=== PATIENT | male | born 1960 | race Two or more races ===

== ENCOUNTER 2019-05-19 11:45 | Emergency (ER) | payer OTHER ==
[~2019-05-19 11:45] MED LIST: ATROPINE SULFATE 0.1 MG/ML 10ML SYRINGE ONE; CALCIUM CHLORIDE 100 MG/ML 10 ML SYRINGE ONE; EPINEPHrine 10 ML SYRINGE (0.1 MG/ML) ONE; SODIUM BICARB 8.4% 50 ML SYR (1 MEQ/ML) ONE
[2019-05-19 12:49] VITALS: BP 0/0; PULSE 0; RESP 0; TEMP 96
--- NOTE | 2019-05-19 12:49 | ED ---
CPR HPI - General Stated Complaint: Cardiac arrest Time Seen by Provider: 05/19/19 11:56 Source: RN notes reviewed, old records reviewed - History of Present Illness Initial Comments: This is a 58-year-old male the ER for evaluation. Patient is unable to give history secondary to current cardiac arrest is brought in by EMS, history obtained by EMS and then further from family upon interview. Patient was playing with grandkids became nauseous fell backwards passed out became unresponsive. At that time patient family called EMS EMS showed at house and found patient to be without pulse. CPR was started, patient was elevated. Patient was given epi is the field 25 minute cardiac arrest. Return of pulse. They did continue CPR and will bring patient into the emergency room patient currently on arrival in emergency room is getting CPR but does not have pulse MD Complaint: found unresponsive, stopped breathing -: minute(s) (45) Place: home Bystander CPR Performed: No AED Applied by Bystander/Cell Room Operator: Yes Shock Advised: No Initial Findings in the Field: unresponsive, no respirations, no pulse ROSC in the Field: Yes Associated Injuries: No Associated Symptoms: dizziness/weakness, sweating Treatments Prior to Arrival: intubation, epinephrine mgs #, other (Kin 3) Review of Systems ROS Statement: Those systems with pertinent positive or pertinent negative responses have been documented in the HPI. ROS Other: All systems not noted in ROS Statement are negative. General Exam Limitations: language barrier, altered mental status General appearance: lethargic Head exam: Present: other (Face looks asphyxiated,) Eye exam: Present: other (Pupils fixed and dilated bilaterally). Absent: scleral icterus, conjunctival injection, periorbital swelling ENT exam: Present: normal exam, other (ET tube is in correct position) Neck exam: Present: normal inspection. Absent: tenderness, meningismus, lymphad enopathy Respiratory exam: Present: other (No lung sounds, apnea, with bagging patient does have lung sounds are equal bilaterally). Absent: respiratory distress, wheezes, rales, rhonchi, stridor Cardiovascular Exam: Present: regular rate, normal rhythm, normal heart sounds. Absent: systolic murmur, diastolic murmur, rubs, gallop, clicks GI/Abdominal exam: Present: soft, normal bowel sounds. Absent: distended, tenderness, guarding, rebound, rigid Extremities exam: Present: normal inspection, full ROM. Absent: tenderness, normal capillary refill, pedal edema, joint swelling, calf tenderness Back exam: Present: normal inspection Neurological exam: Present: other (Unresponsive) Psychiatric exam: Present: other (Unresponsive) Skin exam: Absent: rash Course - Reevaluation(s) Reevaluation #1: 05/19/19 12:47 Medical records reviewed Reevaluation #2: 05/19/19 12:47 Unable to achieve pulse, patient is apneic, ultrasound showing no cardiac activity, cardiac standstill, patient is asystole, pupils 6 and dilated, no heart sounds, patient pronounced at 1151 Reevaluation #3: 05/19/19 12:48 Spoke with family at length regarding patient's condition, family is aware the patient is . Questions are answered Reevaluation #4: 05/19/19 12:48 Spoke with medical assistant secretary Reevaluation #5: 05/19/19 12:48 Speaking with family patient has no family doctor Medical Decision Making - Medical Decision Making 58 female the ER for evaluation of cardiac arrest, patient's cardiopulmonary arrest of unknown cause, patient's pronounced 1151. Disposition Clinical Impression: Cardiopulmonary arrest Disposition: Is patient prescribed a controlled substance at d/c from ED?: No Referrals: None,Stated [Primary Care Provider] - 1-2 days Preliminary Cause of : CPA
[2019-05-19] MEDS ORDERED: SODIUM BICARB 8.4% 50 ML SYR (1 MEQ/ML) ONE (13:45)
[2019-05-19] MEDS ORDERED: ATROPINE SULFATE 0.1 MG/ML 10ML SYRINGE ONE (13:45)
[2019-05-19] MEDS ORDERED: CALCIUM CHLORIDE 100 MG/ML 10 ML SYRINGE ONE (13:45)
== END 2019-05-19 15:00 | disposition expired ==
LOC: EC 11:45
DX: I46.9 Cardiac arrest, cause unspecified (principal)
CPT/HCPCS: 99285; J0171